=== PATIENT | male | born 1965 | race Caucasian/White ===

== ENCOUNTER 2021-09-06 11:04 | Emergency (ER) | payer OTHER, SELFPAY ==
--- NOTE | ~2021-09-06 | CT_ITS ---
EXAMINATION: CT facial & cervical spine wo DATE: 09/06/2021 12:01 INDICATION: Head injury. TECHNIQUE: Computed tomography (CT) of the maxillofacial region and cervical spine was performed with out intravenous contrast. Automated exposure control and iterative reconstruction technique were empl oyed. The dose-length product was 412.95 mGy-cm. COMPARISON: None FINDINGS: MAXILLOFACIAL CT: There is leftward deviation of the nasal septum. There is mucosal thickening in the paranasal sinuses . There is multifocal dental disease. The mastoid air cells are normal. CERVICAL SPINE CT: There is mild emphysema. There is an old healed fracture right clavicle. There is 3 degrees levocurva ture of cervical spine. There is kyphosis of cervical spine. Vertebral body heights are normal. There is moderately decreased disc height at C6-C7 and mildly decreased disc height at C7-T1. The followin g disc levels are specifically discussed: C2-C3: There is no uncovertebral joint osteoarthritis. There is no facet joint osteoarthritis. There is no neural foraminal stenosis. There is no central canal stenosis. C3-C4: There is mild bilateral uncovertebral joint osteoarthritis. There is no facet joint osteoarthr itis. There is no neural foraminal stenosis. There is mild central canal stenosis. C4-C5: There is mild bilateral uncovertebral joint osteoarthritis. There is mild left facet joint ost eoarthritis. There is no neural foraminal stenosis. There is mild central canal stenosis. C5-C6: There is mild bilateral uncovertebral joint osteoarthritis. There is mild bilateral facet join t osteoarthritis. There is no neural foraminal stenosis. There is no central canal stenosis. C6-C7: There is severe right and moderate left uncovertebral joint osteoarthritis. There is mild bila teral facet joint osteoarthritis. There is mild bilateral neural foraminal stenosis. There is mild ce ntral canal stenosis. C7-T1: There is mild bilateral uncovertebral joint osteoarthritis. There is mild bilateral facet join t osteoarthritis. There is no neural foraminal stenosis. There is no central canal stenosis. IMPRESSION: 1. No acute fracture. 2. Moderate cervical spondylosis. 3. Dental disease. Reviewed, dictated and finalized at location A.
--- NOTE | ~2021-09-06 | CT_ITS ---
EXAMINATION: CT brain wo con DATE: 09/06/2021 12:01 INDICATION: Head injury. TECHNIQUE: Computed tomography (CT) of the head was performed without intravenous contrast. The mA wa s adjusted according to patient size. Iterative reconstruction technique was employed. The dose-lengt h product was 605.33 mGy-cm. COMPARISON: None FINDINGS: There is no intracranial hemorrhage, acute infarction, or abnormal intracranial mass lesion . The ventricles are normal in size. The orbits are normal. There is mild mucosal thickening in the p aranasal sinuses. The mastoid air cells are normal. IMPRESSION: 1. Normal brain. Reviewed, dictated and finalized at location A. IMPRESSION: 1. Normal brain.
[2021-09-06 11:06] VITALS: BP 143/80; PULSE 78; RESP 18; TEMP 36.1; O2SAT 97
--- NOTE | 2021-09-06 11:39 | ED.WOUNDLAC ---
HPI - Wound/Laceration General Chief Complaint: Wound/Laceration Stated Complaint: head injury - hit in head with 4X4 Time Seen by Provider: 09/06/21 11:13 Source: patient Mode of arrival: ambulatory Limitations: no limitations History of Present Illness HPI narrative: Patient is a 56-year-old male who presents the ED with report of a laceration above his right eye. Patient reports he was at work approximately 1 hour ago when he was accidentally hit in the face with a 2 x 4 piece of wood. He sustained a small laceration just below his right eyebrow. He did not fall or hit his head, but was jerked backward and reports having mild pain in his posterior neck. He denied any loss of consciousness. He is not on any blood thinners. No other injuries. He does have mild swelling to his R upper eyelid, but no vision changes, diplopia, blurry vision. Patient's tetanus status is unknown. Related Data Home Medications Medication Instructions Recorded Confirmed trazodone 50 mg tablet 50 mg PO .QHS tablet 04/30/19 Allergies Allergy/AdvReac Type Severity Reaction Status Date / Time No Known Allergies Allergy Verified 09/06/21 11:12 Review of Systems Review of Systems: CONSTITUTIONAL: Denies fever. EYES: Denies visual changes. SKIN: Reports laceration below R eyebrow, swelling to R upper eyelid. MUSCULOSKELETAL: Reports posterior neck pain. NEUROLOGIC: Denies LOC, numbness, or weakness. All systems reviewed & are unremarkable except as noted in HPI and below PMFSH Past Medical History Medical History (Updated 09/06/21 @ 12:58 by Shayla Tillman PA-C) Anxiety Asthma Depression PTSD (post-traumatic stress disorder) Seasonal allergies Surgical History Surgical History (Updated 09/06/21 @ 11:41 by Shayla Tillman PA-C) No pertinent past surgical history Family History Family History (Updated 04/30/19 @ 14:40 by Estela Perdomo CMA) Grandparent Dementia Social History Social History Smoking packs per day: 1.5 Smoking cigarettes per day: 30.0 Smoking status: Current every day smoker Alcohol intake: current Alcohol use details: 10-12 beers a week Exam Narrative: GENERAL: Well appearing, well-nourished, non-toxic, in no acute distress. HEAD: Normocephalic, atraumatic. EYES: PERRL/EOMI, conjunctivae clear bilaterally. 1 cm laceration below R eyebrow. Bleeding controlled. Swelling and bruising surrounding laceration involving R upper eyelid. NECK: Supple. No adenopathy, no masses. No midline cervical spinal tenderness to palpation. Mild paraspinal muscle tenderness bilaterally. RESPIRATORY: Airway patent, respirations nonlabored. Clear to auscultation bilaterally, no rales, rhonchi, wheezing. CARDIOVASCULAR: Regular rate and rhythm without murmurs, rubs, or gallops. Radial pulses 2+ and equal bilaterally. MUSCULOSKELETAL: Moves all extremities. Strength/ROM intact without gross deformities. SKIN: Warm, dry, normal color. No rashes. NEURO: A&O X3. Speech clear. Cranial nerves II-XII grossly intact. Steady gait. No ataxic movements. PSYCHIATRIC: Appropriate mood and affect. Normal interaction. Course Vital Signs Vital signs: Vital Signs Temperature 97 F L 09/06/21 11:06 Pulse Rate 78 09/06/21 11:06 Respiratory Rate 18 09/06/21 11:06 Blood Pressure 143/80 H 09/06/21 11:06 Pulse Oximetry 97 09/06/21 11:06 Temperature 97 F L 09/06/21 11:06 Pulse Rate 78 09/06/21 11:06 Respiratory Rate 18 09/06/21 11:06 Blood Pressure 143/80 H 09/06/21 11:06 Pulse Oximetry 97 09/06/21 11:06 Procedures Laceration Laceration 1: Date: 09/06/21 Time: 13:00 Site: face Side (If applicable): right (just below R eyebrow) Size (cm): 1 Description: linear Depth: simple, single layer Local Anesthetic: lidocaine 1% Amount of anesthesia used (mL): 5 Pre-repair: wound explor
[2021-09-06] MEDS: TETANUS,DIPHTHERIA,AC PERTUSSIS ADULT (0.5 ML) BOOSTRIX IM (11:48)
== END 2021-09-06 13:05 | disposition home or self-care (01) ==
PROVIDERS: Emergency Provider Emergency Medicine; PCP Internal Medicine
DX: S01.111A Laceration without foreign body of right eyelid and periocular area, initial encounter (principal); F32.A Depression, unspecified; F43.10 Post-traumatic stress disorder, unspecified; F17.210 Nicotine dependence, cigarettes, uncomplicated; Z23 Encounter for immunization; W22.8XXA Striking against or struck by other objects, initial encounter
CPT/HCPCS: 12011; 70450; 70486; 72125; 90471; 90715; 99284

== ENCOUNTER 2023-11-28 12:45 | Emergency (ER) | payer SELFPAY ==
--- NOTE | ~2023-11-28 | XR_ITS ---
XR finger 2nd LT min 2V 11/28/2023 13:07 INDICATION: Left second finger pain PROCEDURE: 4 views left second finger COMPARISON: No prior studies for comparison. FINDINGS: Fracture, dislocation or subluxation is not identified. The soft tissues appear within norm al limits. No foreign bodies are identified. IMPRESSION: 1: NO ACUTE BONE OR JOINT ABNORMALITY IDENTIFIED. Reviewed, dictated and finalized at location B.
[2023-11-28 12:59] VITALS: BP 132/84; PULSE 85; RESP 16; TEMP 36.8; O2SAT 96
[2023-11-28 13:15] VITALS: BP 132/84; PULSE 85; RESP 16; TEMP 36.8; O2SAT 96
--- NOTE | 2023-11-28 13:30 | ED.WOUNDLAC ---
HPI - Wound/Laceration General Chief Complaint: Wound/Laceration Stated Complaint: FINGER LACERATION Source: patient Mode of arrival: ambulatory Limitations: no limitations History of Present Illness HPI narrative: 58 y/o male presented for c/o finger laceration through the nail sustained yesterday. 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 Pt rinsed the finger after the injury and applied gauze. His cleaned it and applied adaptic and gauze. They want to confirm no infection today. Tetanus utd 2021. Denies numbness, tingling or weakness, denies swelling or bruising to the digit. Related Data Home Medications Medication Instructions Recorded Confirmed trazodone 50 mg tablet 50 mg PO .QHS 04/30/19 11/28/23 Allergies Allergy/AdvReac Type Severity Reaction Status Date / Time No Known Allergies Allergy Verified 11/28/23 12:57 Review of Systems Review of Systems: CONSTITUTIONAL: Denies body aches, fever, chills, or sweats. EYES: Denies visual changes, redness, or discharge. ENT: Denies rhinorrhea, congestion CARDIOVASCULAR: Denies chest pain, palpitations, or edema. RESPIRATORY: Denies cough or dyspnea. GASTROINTESTINAL: Denies abdominal pain, nausea, vomiting, or diarrhea. SKIN: reports laceration left 2nd digit MUSCULOSKELETAL: Denies back pain, joint pain, or myalgia. NEUROLOGIC: Denies headache, numbness, tingling, or weakness. [facility] Past Medical History Medical History Anxiety Asthma Depression PTSD (post-traumatic stress disorder) Seasonal allergies Surgical History Surgical History No pertinent past surgical history Family History Family History Grandparent Dementia Social History Social History Smoking packs per day: 1.5 Smoking cigarettes per day: 30.0 Smoking status: Current every day smoker Alcohol intake: current Alcohol use details: 10-12 beers a week Comments At time of signature, I have reviewed and agree with nursing past medical, surgical, social and family history unless otherwise noted. Please see nursing chart for further information. There is no relevant family history pertinent to the presenting complaint Exam Narrative: GENERAL: Well-appearing EYES: conjunctivae clear, and EOMI. ENT: Mucous membranes moist. Oropharynx without edema, erythema or lesions. CHEST: Clear to auscultation. HEART: Regular rate and rhythm. SKIN: Warm, dry. Linear laceration through left 2nd digit nail bed, nail is firmly in place, no active drainage/bleeding. NEURO: Alert and oriented x3. Course Course Emergency Course: Patient is aware of diagnosis, understands and agrees to treatment plan. Anticipatory guidance given. Patient agrees to follow-up as directed and is aware of reasons to seek care at the emergency department. Portions of this record may have been created with voice recognition software Level of Care: Express Care Visit Vital Signs Vital signs: Vital Signs Temperature 98.2 F 11/28/23 12:59 Pulse Rate 85 11/28/23 12:59 Respiratory Rate 16 11/28/23 12:59 Blood Pressure 132/84 11/28/23 12:59 Pulse Oximetry 96 11/28/23 12:59 Temperature 98.2 F 11/28/23 13:15 Pulse Rate 85 11/28/23 13:15 Respiratory Rate 16 11/28/23 13:15 Blood Pressure 132/84 11/28/23 13:15 Pulse Oximetry 96 11/28/23 13:15 Reviewed MDM - Wound/Laceration MDM Narrative Medical decision making narrative: Discussed physical exam findings and negative x-ray. Wound irrigated extensively with 250ml sterile water and skintegrity, dressing applied. Pt has a finger splint from home, reapplied. Advised supportive measures and signs/symptoms to go to the ER. Pt is appropria
== END 2023-11-28 14:05 | disposition home or self-care (01) ==
PROVIDERS: Emergency Provider Nurse Practitioner Family; PCP Internal Medicine
DX: S61.311A Laceration without foreign body of left index finger with damage to nail, initial encounter (principal); W31.9XXA Contact with unspecified machinery, initial encounter; F17.210 Nicotine dependence, cigarettes, uncomplicated; J45.909 Unspecified asthma, uncomplicated; F32.A Depression, unspecified
CPT/HCPCS: 73140; 99213; G0463